=== PATIENT | male | born 1945 | race Two or more races ===

== ENCOUNTER 2016-11-25 09:16 | Outpatient (CLI) | payer MEDICARE ==
[2016-11-25] MEDS ORDERED: ASPIR 8181 MG ORAL (18:03)
[2016-11-25] MEDS ORDERED: LISINOPRIL20 MG ORAL (18:03)
[2016-11-25] MEDS ORDERED: UNOBMED (18:03)
[2016-11-25] MEDS ORDERED: NORVASC2.5 MG ORAL (18:03)
[2016-11-25] MEDS ORDERED: HYDROCHLOROTHIA50 MG ORAL (18:03)
[2016-11-25] MEDS ORDERED: ATENOLOL25 MG ORAL (18:03)
--- NOTE | 2016-11-25 18:06 | GI Initial Consult Note ---
AnaMalena Carreno N.PIsabella 11/25/16 1806: History of Present Illness General Date patient seen: Nov 25, 2016 Time patient seen: 09:45 Referring physician: NATALIO Reason for Consultation: ELEVATED CEA Present Illness HPI 71 year old male patient referred by Dr. Molina for evaluation of elevated CEA 5.4 The patient presents today with no general GI complaints. He has no history of any endoscopic procedures. Home Meds Reported Medications Hydrochlorothiazide* (HYDROCHLOROTHIAZIDE*) Unknown Strength Tablet, ORAL DAILY , TAB 11/25/16 Amlodipine Besylate (Norvasc) Unknown Strength Tablet, ORAL DAILY, TAB 11/25/16 Lisinopril (LISINOPRIL*) Unknown Strength Tablet, ORAL DAILY, TAB 11/25/16 Atenolol* (TENORMIN*) Unknown Strength Tablet, ORAL DAILY, TAB 11/25/16 Unable to Obtain Medications (UNABLE TO OBTAIN MEDS) 1 Ea Ea 11/25/16 Aspirin* (ASPIR 81*) 81 Mg Tablet., 81 MG ORAL DAILY, TAB 11/25/16 Med list reviewed/reconciled: Yes Allergies: Coded Allergies: No Known Allergies (Unverified , 11/25/16) Patient History History Provided By: Patient PMH Narrative HTN - 2007 Past Surgical History: other - Hernia repair 20+ years ago Social History: Reports: other - coffee daily, smoking Review of Systems All Other Systems: negative except mentioned in HPI Physical Exam T 97.7 BP 140/87 P 58 99 RA WT 151.3 HT 5'4 Sp02 EP Interpretation: reviewed General Appearance: well appearing, no apparent distress, alert Head: normocephalic EENT: PERRL/EOMI, normal ENT inspection Neck: supple Respiratory: normal breath sounds, no respiratory distress Cardiovascular: normal rate Gastrointestinal: normal inspection, non tender, soft, normal bowel sounds Rectal: deferred Genitourinary: no CVA tenderness Musculoskeletal: back normal Neurologic: normal inspection, alert, oriented x3, responsive Psychiatric: normal inspection, judgement/insight normal, memory normal Skin: normal inspection, normal color, no rash, warm/dry Lymphatic: normal inspection, no adenopathy GI: Plan Problems: (1) Elevated CEA (2) Colonoscopy planned Plan EGD/colonoscopy scheduled 11/28/16. - CLD & Trilyte prep instructions given and acknowledged. Seen with Dr. Sharma. Thank you for referring this patient. DAKOTA SHARMA 11/26/16 1115: History of Present Illness Present Illness Home Meds Reported Medications Hydrochlorothiazide* (HYDROCHLOROTHIAZIDE*) Unknown Strength Tablet, ORAL DAILY , TAB 11/25/16 Amlodipine Besylate (Norvasc) Unknown Strength Tablet, ORAL DAILY, TAB 11/25/16 Lisinopril (LISINOPRIL*) Unknown Strength Tablet, ORAL DAILY, TAB 11/25/16 Atenolol* (TENORMIN*) Unknown Strength Tablet, ORAL DAILY, TAB 11/25/16 Unable to Obtain Medications (UNABLE TO OBTAIN MEDS) 1 Ea Ea 11/25/16 Aspirin* (ASPIR 81*) 81 Mg Tablet., 81 MG ORAL DAILY, TAB 11/25/16 Allergies: Coded Allergies: No Known Allergies (Unverified , 11/25/16) GI: Plan Plan The patient was seen and examined at bedside and all new and available data was reviewed in the patients chart. I agree with the above findings, impression and plan. (Patient seen earlier today. Signature stamp does not reflect patient encounter time.). -Cass Martinez MDh Wai He Nov 25, 2016 18:06 DAKOTA SHARMA Nov 26, 2016 11:15
== END 2016-11-25 09:50 | disposition home or self-care (01) ==
LOC: PAN 09:16
DX: R97.0 Elevated carcinoembryonic antigen [CEA] (principal); Z79.82 Long term (current) use of aspirin; I10 Essential (primary) hypertension; F17.200 Nicotine dependence, unspecified, uncomplicated
CPT/HCPCS: 99201

== ENCOUNTER 2016-11-28 08:51 | Day surgery (SDC) | payer MEDICARE ==
[~2016-11-28] VITALS: Ht 162.6 cm; Wt 68.0 kg
[2016-11-28] VITALS (8 sets, daily range): BP systolic 112–141; BP diastolic 63–82
--- NOTE | 2016-11-28 06:29 | Anethesia Preoperative Eval ---
Anesthesia Pre-op PMH/ROS General Date of Evaluation: Nov 28, 2016 Time of Evaluation: 06:28 Anesthesiologist: lexis ASA Score: ASA 3 Mallampati Score Class I : Soft palate, uvula, fauces, pillars visible Class II: Soft palate, uvula, fauces visible Class III: Soft palate, base of uvula visible Class IV: Only hard plate visible Mallampati Classification: Class II Surgeon: pito Diagnosis: elevated cea Surgical Procedure: egd/colonoscopy Anesthesia History: none Family History: no anesthesia problems Allergies: Coded Allergies: No Known Allergies (Unverified , 11/25/16) Medications: see eMAR Past Medical History Cardiovascular: Reports: CAD, HTN Neurologic/Psychiatric: Reports: other - etoh use Anesthesia Pre-op Phys. Exam Physician Exam Constitutional: NAD Neurologic: CN 2-12 intact Cardiovascular: RRR Respiratory: CTA Gastrointestinal: S/NT/ND Airway Exam Mallampati Score: Class II MO: full Neck: supple TMD: 2fb ROM: full Teeth: missing Anesthesia Pre-op A/P Studies Pre-op Studies: EKG - sinus harmony Risk Assessment & Plan Assessment: elevated cea Plan: egd/colonoscopy Status Change Before Surgery: No Pre-Antibiotics Drug: na ASHLEY STOREY Nov 28, 2016 06:29
[~2016-11-28 08:51] MED LIST: ASPIR 8181 MG ORAL; ATENOLOL25 MG ORAL; HYDROCHLOROTHIA50 MG ORAL; LISINOPRIL20 MG ORAL; NORVASC2.5 MG ORAL; UNOBMED
[2016-11-28] MEDS ORDERED: DIVALPROEX SOD500 MG PO (09:33)
[2016-11-28] MEDS ORDERED: ZOCOR20 M1 ORAL (09:33)
[2016-11-28] MEDS ORDERED: LOSARTAN POTASS50 MG ORAL (09:33)
[2016-11-28] MEDS ORDERED: LEXAPRO20 MG ORAL (09:33)
--- NOTE | 2016-11-28 10:08 | Short Stay Surgery H&P ---
History of Present Illness History of Present Illness Chief Complaint see recent consult note HPI Jamie Campos is a 71 year old male who was admitted on for Elevated Cea Patient History Allergies: Coded Allergies: No Known Allergies (Unverified , 11/25/16) PAST MEDICAL HISTORY: Past Surgeries: Social History: Medication History Scheduled Amlodipine Besylate (Norvasc), 5 MG ORAL DAILY, (Reported) Aspirin* (Aspir 81*), 81 MG ORAL DAILY, (Reported) Atenolol* (Tenormin*), 100 MG ORAL DAILY, (Reported) Escitalopram Oxalate* (Lexapro*), 20 MG ORAL DAILY, (Reported) Losartan Potassium* (Losartan Potassium*), 50 MG ORAL DAILY, (Reported) Simvastatin (Zocor), 20 MG ORAL BEDTIME, (Reported) Miscellaneous Medications Divalproex Sodium (Divalproex Sodium), 500 MG PO, (Reported) Physical Exam Vital Signs Last Vital Signs Date Time Temp Pulse Resp B/P Pulse Ox O2 Delivery O2 Flow Rate FiO2 11/28/16 09:19 98.4 56 20 131/73 95 Room Air Plan Attestation Are the patient's medical conditions optimized for surgery? DAKOTA SHARMA Nov 28, 2016 10:08
--- NOTE | 2016-11-28 10:08 | Pre-Procedure Note/Attestation ---
Pre-Procedure Note/Attestation Complete Prior to Procedure Planned Procedure: not applicable Procedure Narrative: egd/colonoscopy Indications for Procedure Pre-Operative Diagnosis: screening colon, GERD Attestation I attest that I discussed the nature of the procedure; its benefits; risks and complications; and alternatives (and the risks and benefits of such alternatives ), prior to the procedure, with the patient (or the patient's legal guest services representative). I attest that, if there was a reasonable possibility of needing a blood transfusion, the patient (or the patient's legal guest services representative) was given the [facility] standardized written summary, pursuant to the [place] Blood Safety Act ([place] Health and Safety Code # 1645, as amended). I attest that I re-evaluated the patient just prior to the surgery and that there has been no change in the patient's H&P, except as documented below: DAKOTA SHARMA Nov 28, 2016 10:07
[2016-11-28] MEDS ORDERED: Lidocaine 1% MPF 10mg/ml 5ml ONE (10:30)
[2016-11-28] MEDS ORDERED: Propofol 10mg/ml 20ml IV ONE (10:30)
--- NOTE | 2016-11-28 10:54 | Endoscopy Procedure Note ---
Endoscopy Procedure Note Indication for Procedure: screening colon Elevated CEA Procedures Performed: EGD, colonoscopy Operative Findings/Diagnosis: gastritis, hemorrhoids, 2 polyps Specimen: yes Pt Tolerated Procedure Well: Yes Estimated Blood Loss: none Anesthesiologist: cherelle webb Anesthesia: MAC Implant(s) used?: No 50 yrs or older w/o bx or poly: No 10yrs. F/U not recommended: Yes If not recommended, why?: Above average risk 10 yrs. F/U needed: Yes 18 years or older w/prev. colo: No DAKOTA SHARMA Nov 28, 2016 10:54
--- NOTE | 2016-11-28 10:54 | Immediate Post-Op Evaluation ---
Immediate Post-Op Evalulation Immediate Post-Op Evalulation Procedure: egd/colonscopy Date of Evaluation: Nov 28, 2016 Time of Evaluation: 11:11 IV Fluids: 300ml 0.9ns Blood Products: none Estimated Blood Loss: negligible Blood Pressure Systolic: 112 Blood Pressure Diastolic: 70 Pulse Rate: 50 Respiratory Rate: 18 O2 Sat by Pulse Oximetry: 100 Temperature (Fahrenheit): 97,9 Pain Score (1-10): 0 Nausea: No Vomiting: No Complications none Patient Status: awake, reacts Hydration Status: adequate Drug: ASHLEY Montoya Nov 28, 2016 10:54
[2016-11-28] MEDS ORDERED: Atropine Inj 1mg/10ml Syr IV PRN (11:00)
[2016-11-28] MEDS ORDERED: Hydromorphone 0.5mg/0.5ml inj IVP PRN (11:00)
[2016-11-28] MEDS ORDERED: Midazolam 2mg/2ml Inj IVP PRN (11:00)
[2016-11-28] MEDS ORDERED: DiphenhydrAMINE 50mg/ml Inj IVP PRN (11:00)
--- NOTE | 2016-11-28 11:13 | 48 Hour Post Anesthesia Eval ---
Post Anesthesia Evaluation Procedure: egd/colonscopy Date of Evaluation: Nov 28, 2016 Time of Evaluation: 11:02 Blood Pressure Systolic: 112 0: 70 Pulse Rate: 52 Respiratory Rate: 18 Temperature (Fahrenheit): 97.9 O2 Sat by Pulse Oximetry: 98 Airway: patent Nausea: No Vomiting: No Pain Intensity: 0 Hydration Status: adequate Cardiopulmonary Status: stable Mental Status/LOC: patient returned to baseline Post-Anesthesia Complications: none Follow-up care needed: N/A ASHLEY STOREY Nov 28, 2016 11:13
--- NOTE | 2016-11-28 16:31 | Procedure Note ---
DATE OF PROCEDURE: 11/28/2016 SURGEON: Bean Falcon M.D. PROCEDURE: Upper endoscopy with biopsy and colonoscopy. ANESTHESIOLOGIST: Maribell Hernandze M.D. INSTRUMENT: Olympus adult flexible endoscope and colonoscope. INDICATION: Elevated CEA, screening colonoscopy evaluation. REASON FOR PROCEDURE: The procedure, risks, benefits, and possible consequences, including hemorrhage, aspiration, perforation and infection, and alternative treatments, were explained to the patient/legal guardian by Dr. Bean Falcon and the patient/legal guardian understood and accepted these risks. PROCEDURE: After informed consent was obtained and the patient was adequately sedated, Olympus upper endoscope was advanced from mouth into the second portion of the duodenum and retroflexion performed in the stomach. The patient had evidence of mild atrophic gastritis. There was some linear ulceration in the body of the stomach. Random biopsy from antrum of the stomach was obtained to rule out H. pylori infection. At this time, the upper endoscope was retrieved and the patient was turned over colonoscopy. First, a rectal exam was performed, which was normal. Then, the scope was advanced from the rectum into the cecum documented by appendiceal orifice, ileocecal valve, and right upper quadrant palpation. Quality of prep was very good. The patient has significant diverticulosis in the left colon and somewhat of a scattered diverticula in the right colon, overall diffuse diverticulosis. There were two polyps, one in the sigmoid and one in the rectosigmoid area. Both diminutive polyps removed with the cold biopsy forceps technique. Retroflexion of rectum was performed which did not show any obvious large internal hemorrhoids. The patient tolerated procedure very well without any complication. SUMMARY OF FINDINGS: 1. Mild atrophic gastritis with some linear ulcerations. 2. Status post antrum biopsy to rule out H. pylori infection. 3. Diverticulosis. 4. Two colonic polyps removed, see above for detail. RECOMMENDATIONS: 1. Follow up biopsy results and treat accordingly. 2. We will recommend repeat colonoscopy in five years. I want to thank, Dr. Bean Molina for this kind referral. Bean Falcon M.D. DR: Sami JOB#: [id number] CC: Bean Molina M.D.; Fax#: [phone]
== END 2016-11-28 11:55 | disposition home or self-care (01) ==
LOC: GAS 08:51
DX: Z12.11 Encounter for screening for malignant neoplasm of colon (principal); K57.30 Diverticulosis of large intestine without perforation or abscess without bleeding; D12.5 Benign neoplasm of sigmoid colon; D12.7 Benign neoplasm of rectosigmoid junction; R97.0 Elevated carcinoembryonic antigen [CEA]; K29.40 Chronic atrophic gastritis without bleeding; K25.9 Gastric ulcer, unspecified as acute or chronic, without hemorrhage or perforation; I25.10 Atherosclerotic heart disease of native coronary artery without angina pectoris; I10 Essential (primary) hypertension; Z72.89 Other problems related to lifestyle; Z79.82 Long term (current) use of aspirin
CPT/HCPCS: 43239; 45380; 93005; J2704; 94003; 94150